=== PATIENT | female | born 1960 | race Caucasian/White ===

== ENCOUNTER → 2018-12-20 08:40 | Outpatient (CLI) | payer BC, SELFPAY ==
--- NOTE | 2018-12-20 08:49 | BI_ITS ---
MAMMOGRAPHY - UNILATERAL DIAGNOSTIC: RIGHT BREAST REASON FOR EXAM: Female, 58 years old. Abnormal screening mammogram. PERTINENT HISTORY: Non-contributory. TECHNIQUE: Compression spot views of the right breast in the mediolateral oblique and craniocaudad projections were obtained. CAD: Full Field Digital Mammography with Computer Added Detection was performed. COMPARISON: Comparison is made with prior examination dated November 04, 2018. FINDINGS: Breast Composition: The breasts are heterogeneously dense, which may obscure small masses. There are no dominant masses or suspicious calcifications. The focal area of architectural distortion is not seen on this exam. This most likely represents summation of tissue. No other significant abnormalities are identified. BI/DIAG MAMM W/CAD, UNILAT IMPRESSION: Unremarkable diagnostic mammogram. One year follow-up mammogram recommended. (A) ASSESSMENT CATEGORY: BIRADS Category 2: Benign. A letter regarding these results will be sent to the patient by the facility within 30 days. Approximately 10% of breast cancers are not detected by mammography. A normal mammogram should not delay biopsy of a clinically suspicious abnormality. Electronically Signed: Yoseph Gamboa, at 13:38 EDT , Service support ,
--- NOTE | 2018-12-20 09:54 | US_ITS ---
STUDY: ULTRASOUND BREAST - RIGHT REASON FOR EXAM: Female, 58 years old. Abnormal screening mammogram. TECHNIQUE: Axial and longitudinal images of the RIGHT breast were performed with a high resolution ultrasound transducer. COMPARISON: Comparison is made with prior mammogram done earlier today. FINDINGS: RIGHT Breast: The medial aspect of the right breast was examined by ultrasound. There is homogeneous fibroglandular tissue. No sonographic abnormality is seen. US/Breast Limited Unilateral IMPRESSION: No sonographic abnormality is seen. ASSESSMENT CATEGORY: BIRADS Category 1: Negative. A letter regarding these results will be sent to the patient by the facility within 30 days. Electronically Signed: Yoseph Gamboa, at 10:32 EDT , Service support ,
== END ==
PROVIDERS: Referring Provider Obstetrics & Gynecology; Visit Provider Obstetrics & Gynecology
DX: N64.59 Other signs and symptoms in breast (principal)
CPT/HCPCS: 76642; 77065

== ENCOUNTER → 2019-01-13 09:02 | Outpatient (CLI) | payer BC, SELFPAY ==
--- NOTE | 2019-01-13 09:11 | MRI_ITS ---
STUDY: BILATERAL BREAST MR WITHOUT AND WITH CONTRAST REASON FOR EXAM: Female, 58 years old. Palpable lump in right lower quadrant. TECHNIQUE: Multi-sequence multi-echo imaging of both breasts was performed with a dedicated breast coil. T1-weighted and T2-weighted images were performed before the administration of contrast. T1-weighted images were also performed after the administration of 16 IV Dotarem without complications. COMPARISON: Right breast ultrasound dated December 20, 2018, right breast mammogram dated December 20, 2018 and bilateral mammograms dated November 04, 2018. FINDINGS: RIGHT BREAST: The breast tissue is heterogeneously dense with minimal background enhancement. There are 2 small lymph nodes in the right breast. There are no abnormal enhancing masses or areas of non-mass enhancement in the right breast. LEFT BREAST: The breast tissue is heterogeneously dense with minimal background enhancement. There is a small lymph node in the left breast. There are no abnormal enhancing masses or areas of non-mass enhancement in the left breast. There are no enlarged or abnormal lymph nodes. There is no abnormality in the visualized regions of the chest or liver. MRI/Breast Bilateral W/O and W IMPRESSION: Normal breast MR examination with contrast. CATEGORY: BIRADS Category 2: Benign. A letter regarding these results will be sent to the patient by the facility within 30 days. Electronically Signed: Larry Lee MD at 15:45 EDT , Service support ,
== END ==
PROVIDERS: Referring Provider Obstetrics & Gynecology; Visit Provider Obstetrics & Gynecology
DX: N64.59 Other signs and symptoms in breast (principal)
CPT/HCPCS: 77049; A9575; A4216; C8908

== ENCOUNTER → 2020-01-02 16:07 | Outpatient (CLI) | payer BC, SELFPAY ==
--- NOTE | 2020-01-02 16:09 | BI_ITS ---
MAMMOGRAPHY - BILATERAL SCREENING REASON FOR EXAM: Female, 59 years old. Routine annual screening examination. PERTINENT HISTORY: Sister with breast cancer. TECHNIQUE: Digital bilateral breast gregoria (3D mammographic acquisition) in the CC and MLO projections. 2-D mediolateral oblique (MLO) and craniocaudad (CC) views of both breasts were obtained. CAD: Full Field Digital Mammography with Computer Added Detection was performed. COMPARISON: Comparison is made with prior mammogram of the right breast dated December 20, 2018. FINDINGS: Breast Composition: The breasts are heterogeneously dense, which may obscure small masses. There are no dominant masses or suspicious calcifications. Stable benign-appearing bilateral axillary lymph nodes. No other significant abnormalities are identified. There has been no significant change since the prior study. BI/SCREEN MAMM (CAD) W/GREGORIA BILAT IMPRESSION: Stable bilateral screening mammogram. Yearly follow-up mammogram recommended. (A) ASSESSMENT CATEGORY: BIRADS Category 2: Benign. A letter regarding these results will be sent to the patient by the facility within 30 days. Approximately 10% of breast cancers are not detected by mammography. A normal mammogram should not delay biopsy of a clinically suspicious abnormality. [id number] Electronically Signed: Yoseph Gamboa, at 8:39 EDT , Service support ,
== END ==
PROVIDERS: PCP Nurse Practitioner Family; Referring Provider Nurse Practitioner Family; Visit Provider Nurse Practitioner Family
DX: Z12.31 Encounter for screening mammogram for malignant neoplasm of breast (principal); Z80.3 Family history of malignant neoplasm of breast
CPT/HCPCS: 77063; 77067

== ENCOUNTER → 2020-01-22 13:00 | Outpatient (CLI) | payer BC, SELFPAY ==
--- NOTE | 2020-01-22 13:03 | STEWCON_ITS ---
Reason For Study: Chest Pain Stress Results Protocol: Ernesto Protocol WITH DEFINITY Maximum Predicted HR: 159 bpm Target HR: 135 bpm % Maximum Predicted HR: 89 % DurationHeart Rate Stage (mm:ss) (bpm) BP Comment Baseline 67 126/84No Chest Pain; 2 ML Diluted Definity Ernesto Protocol Stage I 3:00 105 144/68No Chest Pain Ernesto Protocol Stage II 3:00 121 150/70No Chest Pain; Mild Dyspnea Ernesto Protocol Stage III 3:00 141 170/68No Chest Pain; Moderate Dyspnea Recovery 96 120/78No Chest Pain Stress Duration: 9:00 mm:ss Maximum Stress HR: 141 bpm METS: 10 Baseline Echocardiogram Findings Stress Echo Wall motion Data Resting WM Intermediate WM Stress WM Interpretation Summary Exercise stress echo. 59-year-old lady with a history of hypertension. Stress protocol: Resting EKG demonstrates normal sinus rhythm with a rate of 70 bpm normal intervals are noted resting blood pressure is 126/84 mmHg. The patient exercised according to the regular Ernesto protocol for a total duration of 9 minutes. The maximum heart rate attained was 144 bpm which was 90% of max impacted heart rate the maximum workload was 10.1 metabolic equivalents. At rest there were no ST or T wave changes noted to suggest ischemia at peak exercise upsloping ST changes only were noted with no meet the criteria for ischemia. The resting blood pressure was 126/84 with a peak blood pressure 170/68 mmHg which was a normal response. Rate-pressure product was 23,970. Stress echocardiographic images. The stress echocardiogram demonstrated normal ventricular ejection fraction at rest estimated at 60% and a peak ejection fraction of 75% with no wall motion abnormalities present. No evidence of ischemia was noted. Images were obtained with Definity enhancement. Conclusion: Normal stress echocardiogram with no evidence of ischemia at a high workload. Excellent functional capacity. Ordering Physician: Tracy Cooper Referring Physician: Aurelio Funes Performed By: Wilfred, Lorraine, RDCS, RVT
== END ==
PROVIDERS: PCP Nurse Practitioner Family; Referring Provider Nurse Practitioner Family; Visit Provider Nurse Practitioner Family
DX: R07.9 Chest pain, unspecified (principal)
CPT/HCPCS: 93017; 93350; Q9957; A4216; C8928

== ENCOUNTER → 2021-02-20 | Outpatient (CLI) | payer BC, SELFPAY | END | disposition home or self-care (01) | LOC: LABSPEC 16:55 | PROVIDERS: Visit Provider Physician Assistant | DX: Z20.822 Contact with and (suspected) exposure to COVID-19 (principal) | CPT/HCPCS: 87635; U0005; U0003 ==

== ENCOUNTER → 2021-03-11 11:05 | Outpatient (CLI) | payer BC, SELFPAY ==
[2021-03-11 15:19] LABS: Absolute Lymphocyte Count 0.84 X10^3/uL (0.83-4.51); Absolute Neutrophil Count 2.6 X10^3/uL (2.0-7.7); Basophil# 0.05 X10^3/uL; Basophil% 1.2 % (0-1); Eosinophil# 0.21 X10^3/uL; Hematocrit 44.1 % (37-47); Hemoglobin 14.6 g/dL (12.0-15.0); Lymphocyte # 0.84 X10^3/ul (0.83-4.51); Lymphocyte % 20.1 % (19-41); Mean Corp Hgb Conc 33.1 g/dL (32-36); Mean Corpuscular Hgb 31.5 pg (27.0-32.0); Mean Platelet Vol. 9.7 fl (6.2-12.0); NRBC Flagged by Analyzer 0 % (0-5); Neutrophil # 2.56 X10^3/uL (2.7-7.7); Neutrophil % 61.5 % (47-70); Platelet Count 285 K/mm3 (150-450); RBC Distribution Width CV 12.6 % (11.6-14.6); RBC Distribution Width SD 44.1 fl (35.1-43.9); Red Blood Count 4.64 M/mm3 (4.2-5.4); White Blood Count 4.2 K/mm3 (4.4-11.0)
[2021-03-11 15:26] LABS: ALB/GLOB Ratio 1.1 RATIO (0.9-2.4); AST(SGOT) 17 U/L (15-37); Alanine Aminotransfer ALT/SGPT 30 U/L (13-56); Albumin, Serum 3.9 g/dL (3.2-5.0); Alkaline Phosphatase 78 U/L (45-117); Anion Gap 6 (5-15); BUN 17 mg/dL (7-18); BUN/Creat Ratio 23.7 RATIO (10-20); CPK Total, Creatine Kinase 135 U/L (26-192); Calcium,Total 9.3 mg/dL (8.5-10.1); Chloride 102 mmol/L (98-107); Creatinine, Serum 0.72 mg/dL (0.55-1.02); EST Glomerular Filtration Rate 88 mL/min (>60); Est Glom Filt Rate - Afr Amer 106 mL/min (>60); Globulin 3.5 g/dL (2.2-4.2); Glucose 89 mg/dL (74-106); Potassium 3.8 mmol/L (3.5-5.1); Protein, Total 7.4 g/dL (6.4-8.2); Sodium Level 137 mmol/L (136-145)
== END ==
PROVIDERS: PCP Registered Nurse; Referring Provider Dermatology Pediatric Dermatology; Visit Provider Dermatology Pediatric Dermatology
DX: L82.1 Other seborrheic keratosis (principal); L81.4 Other melanin hyperpigmentation; D18.01 Hemangioma of skin and subcutaneous tissue; L57.8 Other skin changes due to chronic exposure to nonionizing radiation; L57.3 Poikiloderma of Civatte; L30.9 Dermatitis, unspecified; L71.0 Perioral dermatitis; D48.5 Neoplasm of uncertain behavior of skin; Z71.89 Other specified counseling
CPT/HCPCS: 36415; 80053; 82550; 85025; 86038; 86235

== ENCOUNTER → 2022-01-19 | Outpatient (CLI) | payer BC, SELFPAY ==
--- NOTE | 2022-01-19 08:41 | BI_ITS ---
MAMMOGRAPHY - BILATERAL SCREENING 3-D TOMOSYNTHESIS REASON FOR EXAM: Female, 61 years old. Annual screening mammogram. PERTINENT HISTORY: History of breast cancer in sister, age not identified. TECHNIQUE: 2-D mammograms and 3-D Tomosynthesis of the breast (s) were performed. CAD was performed. COMPARISON: 01/09/2021, 01/02/2020. FINDINGS: The breast composition is heterogeneously dense that can obscure small breast masses. Stable lymph nodes bilaterally. No dense spiculated masses or suspicious microcalcifications are identified. No architectural distortion is identified. There is no skin thickening or retraction. BI/SCRN MAMM (CAD)W/GREGORIA BILAT IMPRESSION: No interval change and no mammographic signs of malignancy. Routine yearly mammograms recommended. ASSESSMENT CATEGORY: BIRADS Category 2: Benign. A letter regarding these results will be sent to the patient by the facility within 30 days. FOLLOW UP RECOMMENDATION: Yearly follow up mammogram recommended. (A) Approximately 10% of breast cancers are not detected by mammography. A normal mammogram should not delay biopsy of a clinically suspicious abnormality. Electronically Signed: Larry Lee MD at 12:13 EDT ,
== END | disposition home or self-care (01) ==
PROVIDERS: PCP Registered Nurse; Visit Provider Registered Nurse
DX: Z12.31 Encounter for screening mammogram for malignant neoplasm of breast (principal); Z80.3 Family history of malignant neoplasm of breast
CPT/HCPCS: 77063; 77067

== ENCOUNTER → 2023-04-20 | Outpatient (CLI) | payer BC, SELFPAY ==
--- NOTE | 2023-04-20 07:30 | BI_ITS ---
MAMMOGRAPHY - BILATERAL SCREENING REASON FOR EXAM: Female, 62 years old. Routine annual screening examination. PERTINENT HISTORY: Sisters with breast cancer. TECHNIQUE: Digital bilateral breast gregoria (3D mammographic acquisition) in the CC and MLO projections. 2-D mediolateral oblique (MLO) and craniocaudad (CC) views of both breasts were obtained. CAD: Full Field Digital Mammography with Computer Added Detection was performed. COMPARISON: Comparison is made with prior study January 19, 2022 and January 02, 2020. FINDINGS: Breast Composition: The breasts are heterogeneously dense, which may obscure small masses. There are no dominant masses or suspicious calcifications. Stable small benign-appearing bilateral axillary lymph nodes. No other significant abnormalities are identified. There has been no significant change since the prior study. BI/SCRN MAMM (CAD)W/GREGORIA BILAT IMPRESSION: Stable bilateral screening mammogram. Yearly follow-up mammogram recommended. (A) ASSESSMENT CATEGORY: BIRADS Category 2: Benign. A letter regarding these results will be sent to the patient by the facility within 30 days. Approximately 10% of breast cancers are not detected by mammography. A normal mammogram should not delay biopsy of a clinically suspicious abnormality. [id number] Electronically Signed: Yoseph Gamboa MD at 8:56 EDT ,
== END | disposition home or self-care (01) ==
LOC: OPBI 07:28
PROVIDERS: PCP Registered Nurse; Referring Provider Registered Nurse; Visit Provider Registered Nurse
DX: Z12.31 Encounter for screening mammogram for malignant neoplasm of breast (principal); Z80.3 Family history of malignant neoplasm of breast
CPT/HCPCS: 77063; 77067

== ENCOUNTER 2023-05-27 18:22 | Emergency (ER) | payer BC, SELFPAY ==
[2023-05-27 18:24] VITALS: BP 143/102; PULSE 71; RESP 15; TEMP 36.7; O2SAT 98; BMI 28.0
--- NOTE | 2023-05-27 21:46 | EX.ED.UPPERE ---
HPI History of Present Illness Chief Complaint: Laceration Detail of Chief Complaint: Tissue avulsion radial side right index finger Informant: patient Occured/Mechanism Comment: Injury while slicing potatoes Onset/Context/Timing Onset: Hours Context: Sudden Onset Timing: Continuous Quality of Pain: - (Patient presently has no pain) Location: Radial side right index finger over the middle phalanx between the DIP and Current Severity: Gone Maximum Severity: Moderate Worsened by: Initial injury Relieved by: Not applicable Associated Symptoms Associated Symptoms: Negative for Parasthesia, Weakness or Loss of Funtion Narrative Narrative: Patient is a 62-year-old woman who presents with injury to her right index finger. This occurred while slicing potatoes. She states she left the tissue at home. Last tetanus was 6 years ago. She denies paresthesia, anesthesia motors. She is not on antithrombotic or anticoagulant. Tetanus Immunization: 5-10 years Prior similar symptoms: No Recent Illness/Hospitalization: No PFSH PFSH Allergy/AdvReac Type Severity Reaction Status Date / Time Penicillins Allergy Other Verified 05/27/23 18:24 Social History Smoking Status: Never smoker ROS ROS ED Integumentary Reports other Details: Skin avulsion between the DIP and PIP P joint right index finger Neurologic Neurologic: Denies paresthesias or weakness Hematologic/Lymphatic Hematologic/Lymphatic: Denies easy bleeding or easy bruising EXAM Physical Exam Const Vital Signs: 05/27/23 18:24 Temperature 98.1 F Temperature Source Temporal Pulse Rate 71 Respiratory Rate 15 Blood Pressure 143/102 H Blood Pressure Mean 115 Pulse Ox 98 Oxygen Delivery Method Room Air Positive well nourished and well developed General Appearance ED: well developed and NAD HEENT Reports moist mucous membranes normocephalic and atraumatic Eyes PERRL and EOMs intact bilaterally Resp normal respiratory effort Cardio regular rate and regular rhythm Extremity Negative for normal to inspection Extremity Narrative: Skin avulsion 3 mm x 20 mm dorsal radial side of the right index finger between the DIP and PIP joint. Sensations intact. Capillary refill is normal. The extensor inside tendon is functionally intact. The flexor digitorum superficialis and flexor digitorum profundus are intact. Neuro oriented x3, CN's II-XII intact bilaterally, no focal motor deficits and no sensory deficits noted Sensorium / Orientation: alert Psych mental status grossly normal Skin Skin Narrative: Skin avulsion as described under the extremity portion of the chart MDM MDM MDM Narrative Medical decision making narrative: Tetanus is up-to-date since this is not a contaminated or dirty wound. Neurovascularly patient is intact. There is nothing that can be sutured. Patient was discharged home with appropriate home-going instructions. Discharge Plan Triage Chief Complaint: Laceration ED Provider: Edison Taylor Dx/Rx/DC Orders Clinical Impression: Avulsion of skin of index finger without complication Instructions: ED Skin Tear (Skin Avulsion) Primary Care Provider: Mary Adamson NP Referrals: Mary Adamson NP, [employer] PROFESSOR-C [Primary Care Provider] - As Needed Activity Restrictions/Additional Instructions: 1. Keep wound clean and dry for the next several days. 2. If there is any evidence of infection or concern for infection either see your provider or return to the emergency department for evaluation 3. Apply bacitracin ointment 3 times a day for the next 3 to 5 days. Disposition Disposition: Home, Self Care
[2023-05-27 22:01] VITALS: PULSE 81; RESP 16; O2SAT 98
== END 2023-05-27 22:02 | disposition home or self-care (01) ==
PROVIDERS: Emergency Provider Emergency Medicine; PCP Registered Nurse; Visit Provider Emergency Medicine
DX: S61.210A Laceration without foreign body of right index finger without damage to nail, initial encounter (principal); W26.8XXA Contact with other sharp object(s), not elsewhere classified, initial encounter; Y93.G1 Activity, food preparation and clean up
CPT/HCPCS: 99282

== ENCOUNTER → 2024-04-26 | Outpatient (CLI) | payer MEDICARE, OTHER, SELFPAY | END | disposition home or self-care (01) | LOC: OPBI 08:46 | PROVIDERS: PCP Registered Nurse; Referring Provider Registered Nurse; Visit Provider Registered Nurse | DX: Z12.31 Encounter for screening mammogram for malignant neoplasm of breast (principal) | CPT/HCPCS: 77063; 77067 ==

== ENCOUNTER 2024-11-24 09:00 | Outpatient (RCR) | payer MEDICARE, SELFPAY ==
--- NOTE | 2024-10-30 09:40 | HP.PTEVAL ---
Patient's Visit Information Visit Information Visit Information: NASREEN WELDON is a 64 year old F referred to Physical Therapy by SHYAM Higgins with a diagnosis of Acute R shoulder pain. Date of Evaluation: 10/30/24 Physical Therapist: Dariusz Doherty, DPT, OCS, CSCS Visit Plan Frequency: 2-3x /Week Duration: 4-6 Weeks Plan: 2-3x/week for 3-6 weeks IE HEP pendulum, shoulder blade circles 20x 2x/day and activity modificaiton /hammer theory treat with US nonthermal to R supraspinatus and manual grade 1-2 g-h mobs if painful at rest , then progress to scap and RC strength to HEP and eventually back out to gym with precautions. UE strength focussing scap and RC. Subjective Subjective: I have pain in r shoulder. Been there for long time and ignored. Last 4 weeks worse with planting and digging [place] etc, also went to [employer] and dug a lot. Worse prior to prednisone, Could not lift arm or open jar, is R handed. been on prednisone for a week and another week. It helped 75%. Now has pain still at rest 3/10 , Pain is anterior at R shoulder. Sleep is interrupted prior to muscle relaxer and prednisone. Retired. Works out at 3days week prior to this on bicycle and leg machines, stopped pull downs for arms as it hurt. Basic ADLs all I over the weekend, was more challenging when painful. Pain R shoulder: Pain Intensity (Out of 10): 3 Pain Intensity Range: 0 and 10 Comment: prednisone helped. 10 prior throbbed. Objective Objective: Walks into PT I with I transfers and good balance. Posture is forward head and protracted scap minimally. Tenderness to palpation in supraspinatus insertion of anterior shoulder locally R only moderately. + HK and + neer on R, - ext rotation lag test, - sulcus, - drop arm. - labral testing. AROM R shoulder is hesitant at end ranges of er, ir and flexion but full and symmetrical with L. pecs minimally tight B shoulders. strength is 3+ er B with pain R, 4- IR, bi and tri 4- no pain. flexion and abd 3+ R and 4- L with some right sided pain. empty can + R. Balance/Special Test Scores Quick DASH Score: 36.3625 Goals Goal 1:: Full aROM R shoulder without pain Goal Time Frame: 4-6 Weeks Goal 2:: pain 1/10 at worst and 90% improved Goal Time Frame: 4-6 Weeks Goal 3:: I appropriate HEP to limit future problems Goal Time Frame: 4-6 Weeks Goal 4:: sleep without interruption or need for pain meds Goal Time Frame: 4-6 Weeks Goal 5:: Dressing and basic ADLs without increased pain or need for meds. Goal Time Frame: 4-6 Weeks Goal 6:: qucikdash score 15 or better Goal Time Frame: 4-6 Weeks Rehabilitation Potential Physical Therapy Diagnosis: R shoulder inflammation pain limiting comfortable funciton. approrpiate for PT Rehabilitation Potential: Good Anticipated Interventions Patient/Client Instruction: Educate patient on: Condition and Plan of Care For the Purpose of:: To decrease pain, To increase ROM, To improve nutrient delivery to tissue, To increase tolerance to activity/condition/position and To improve ability of physical actions for home/community/work/leisure For the Purpose of:: To decrease pain, To decrease swelling/inflammation, To improve nutrient delivery to tissue, To improve muscle performance and motor function and To increase tolerance to activity/condition/position Manual Therapy Techniques to Include: Mobilization, Passive ROM and Soft tissue mobilization For the Purpose of:: To decrease pain, To decrease swelling/inflammation, To improve nutrient delivery to tissue and To increase tolerance to activity/condition/position Cryotherapy (ice pack, ice massage): Yes Ultrasound (thermal/non thermal): Yes For the Purpose of:: To decrease pain, To decrease swelling/inflammation and To improve nutrient delivery to tissue Text: Thank you for the opportunity to evaluate your patient. For Medicare and Medicare HMO plans, please review the plan of care and approve it. It will need to be FAXED BACK to us at [phone] for Medicare purposes. For Medicare only, by signing this I certify the plan of care. Please let me know if there are questions or concerns regarding this plan of care. Physician Signature: Date:
--- NOTE | 2024-11-24 09:46 | HP.PTEVAL_ITS ---
Patient's Visit Information Visit Information Visit Information: NASREEN WELDON is a 64 year old F referred to Physical Therapy by SHYAM Higgins with a diagnosis of Acute R shoulder pain. Date of Evaluation: 10/30/24 Physical Therapist: Dariusz Doherty, DPT, OCS, CSCS Visit Plan Frequency: 2-3x /Week Duration: 4-6 Weeks Plan: d/c to HEP and gym ex Subjective Subjective: I have pain in r shoulder. Been there for long time and ignored. Last 4 weeks worse with planting and digging [place] etc, also went to [employer] and dug a lot. Worse prior to prednisone, Could not lift arm or open jar, is R handed. been on prednisone for a week and another week. It helped 75%. Now has pain still at rest 3/10 , Pain is anterior at R shoulder. Sleep is interrupted prior to muscle relaxer and prednisone. Retired. Works out at 3days week prior to this on bicycle and leg machines, stopped pull downs for arms as it hurt. Basic ADLs all I over the weekend, was more challenging when painful. Pain R shoulder: Pain Intensity (Out of 10): 1 Pain Intensity Range: 0 and 10 Comment: 1-210 Objective Objective: Walks into PT I with I transfers and good balance. Posture is forward head and protracted scap minimally. Tenderness to palpation in supraspinatus insertion of anterior shoulder locally R only moderately. + HK and + neer on R, - ext rotation lag test, - sulcus, - drop arm. - labral testing. AROM R shoulder is hesitant at end ranges of er, ir and flexion but full and symmetrical with L. pecs minimally tight B shoulders. strength is 3+ er B with pain R, 4- IR, bi and tri 4- no pain. flexion and abd 3+ R and 4- L with some right sided pain. empty can + R. Balance/Special Test Scores Quick DASH Score: 9.0900 Goals Goal 1:: Full aROM R shoulder without pain Goal Time Frame: 4-6 Weeks Goal 2:: pain 1/10 at worst and 90% improved Goal Time Frame: 4-6 Weeks Goal 3:: I appropriate HEP to limit future problems Goal Time Frame: 4-6 Weeks Goal 4:: sleep without interruption or need for pain meds Goal Time Frame: 4-6 Weeks Goal 5:: Dressing and basic ADLs without increased pain or need for meds. Goal Time Frame: 4-6 Weeks Goal 6:: qucikdash score 15 or better Goal Time Frame: 4-6 Weeks Rehabilitation Potential Physical Therapy Diagnosis: R shoulder inflammation pain limiting comfortable funciton. approrpiate for PT Rehabilitation Potential: Good Anticipated Interventions Patient/Client Instruction: Educate patient on: Condition and Plan of Care For the Purpose of:: To decrease pain, To increase ROM, To improve nutrient delivery to tissue, To increase tolerance to activity/condition/position and To improve ability of physical actions for home/community/work/leisure For the Purpose of:: To decrease pain, To decrease swelling/inflammation, To improve nutrient delivery to tissue, To improve muscle performance and motor function and To increase tolerance to activity/condition/position Manual Therapy Techniques to Include: Mobilization, Passive ROM and Soft tissue mobilization For the Purpose of:: To decrease pain, To decrease swelling/inflammation, To improve nutrient delivery to tissue and To increase tolerance to activit y/condition/position Cryotherapy (ice pack, ice massage): Yes Ultrasound (thermal/non thermal): Yes For the Purpose of:: To decrease pain, To decrease swelling/inflammation and To improve nutrient delivery to tissue Text: Thank you for the opportunity to evaluate your patient. For Medicare and Medicare HMO plans, please review the plan of care and approve it. It will need to be FAXED BACK to us at [phone] for Medicare purposes. For Medicare only, by signing this I certify the plan of care. Please let me know if there are questions or concerns regarding this plan of care. Physician Signature: Date:_
--- NOTE | 2024-11-24 09:46 | HP.PTDCSUM ---
Discharge Summary D/C summary: It has been my pleasure to treat NASREEN WELDON referred by Mary Adamson NP-C, with the diagnosis of Acute R shoulder pain for a total of 7 visit(s). Discharge Date: 11/24/24 Please see the following information for a summary of their discharge status. Subjective Subjective: Getting a whole lot better. I can move my arm now and am off the drugs. Sleeping is only an issue sometime if I hoe in the garden too much. 80% better and pain to 7/10 after activity adn trying to sleep. Activitiy perez she is normal. HEP goign well and has gym ex she will continue as a member. To doctor: no f/u Pain R shoulder: Pain Intensity (Out of 10): 1 Overall Improvement % Improvement: 80 Objective Objective/Function: Full aROM only slight transient end range pain flexion and IR. strength is 4 in flexiona dn abd wiht some continued discomfort, ext rot and IR 4 without pain. Overall doing well. Goals Goal 1:: Full aROM R shoulder without pain Goal Progress: end rangee flexion adn IR Goal 2:: pain 1/10 at worst and 90% improved Goal Progress: 80% Goal 3:: I appropriate HEP to limit future problems Goal Progress: Goal Met Goal 4:: sleep without interruption or need for pain meds Goal Progress: Progressing Goal 5:: Dressing and basic ADLs without increased pain or need for meds. Goal Progress: Goal Met Goal 6:: qucikdash score 15 or better Goal Progress: Goal Met Plan Plan: d/c to HEP and gym ex D/C Information d/c sentence: If there are questions or concerns regarding this patient's physical therapy, please feel free to call me at [phone]. Thank you for the referral of this patient. Sincerely, Dariusz Doherty, DPT, OCS, CSCS Balance/Gait/Functional tests Balance/Special Test Scores Quick DASH Score: 9.0900 Improvement % Improvement: 80
== END 2024-11-24 19:00 | disposition home or self-care (01) ==
LOC: PT 09:00
PROVIDERS: PCP Registered Nurse; Referring Provider Registered Nurse; Visit Provider Registered Nurse
DX: M25.511 Pain in right shoulder (principal)
CPT/HCPCS: 97035; 97110; 97161; 97530

== ENCOUNTER → 2025-04-30 | Outpatient (CLI) | payer MEDICARE, SELFPAY ==
--- NOTE | 2025-04-30 15:50 | BI_ITS ---
EXAM: SCRN MAMM (CAD)W/GREGORIA BILAT DATE: 04/30/2025 CLINICAL HISTORY: F, Age 64 y/o , SCREENING Sister with breast cancer. TECHNIQUE: Procedure Code: [id number] Modality: MG Procedure: SCRN MAMM (CAD)W/GREGORIA BILAT COMPARISON: Prior exam(s) dated April 26, 2003. FINDINGS: TISSUE DENSITY: The breasts are heterogeneously dense, which may obscure small masses. Bilateral Breast Mammographic Findings: No significant masses, calcifications or other abnormalities are identified. Stable small bilateral fat containing axillary lymph nodes. No suspicious masses, areas of developing architectural distortion, or suspicious calcifications. There has been no significant interval change. BI/SCRN MAMM (CAD)W/GREGORIA BILAT IMPRESSION: Stable screening mammogram. OVERALL FINAL ASSESSMENT BI-RADS 2: BENIGN RECOMMENDATION: Routine annual follow-up in 1 Year Additional Recommendation none A letter with findings and recommendations will be mailed to the patient. Reading Location: [id number]
== END | disposition home or self-care (01) ==
LOC: OPBI 15:49
PROVIDERS: PCP Registered Nurse; Referring Provider Registered Nurse; Visit Provider Registered Nurse
DX: Z12.31 Encounter for screening mammogram for malignant neoplasm of breast (principal)
CPT/HCPCS: 77063; 77067